=== PATIENT | male | born 1985 | race Caucasian/White ===

== ENCOUNTER 2021-06-18 22:52 | Emergency (ER) | payer SELFPAY ==
[2021-06-18] MEDS ORDERED: Dextrose 50% Abboject 50 ML SYRINGE ONE ×2 (22:59→23:00)
== END 2021-06-19 00:39 ==
LOC: ERS 22:52
DX: E11.649 Type 2 diabetes mellitus with hypoglycemia without coma (principal)
CPT/HCPCS: 36416; 96374